=== PATIENT | female | born 1980 | race Caucasian/White ===

== ENCOUNTER 2022-07-02 08:00 | Outpatient (NON) | payer OTHER, SELFPAY | END 2022-07-02 08:01 | disposition home or self-care (01) | LOC: ANHLAB 07-03 08:26 | PROVIDERS: PCP Family Medicine Adolescent Medicine; Visit Provider Internal Medicine Gastroenterology | DX: R10.13 Epigastric pain (principal); K63.5 Polyp of colon | CPT/HCPCS: 88305; 88342 ==

== ENCOUNTER 2022-07-02 11:58 | Day surgery (SDC) | payer OTHER, SELFPAY ==
[2022-06-02 10:07] VITALS: BMI 32.2
[2022-06-18 09:49] VITALS: BMI 32.1
[2022-07-02 12:59] VITALS: BP 130/94; PULSE 70; RESP 18; TEMP 36.8; O2SAT 99
[2022-07-02] MEDS: LACTATED RINGERS 1,000 ML 150 ML IV CONT (13:04)
--- NOTE | 2022-07-02 13:14 | WPDANESEPPF ---
Anes - Initial Pre Proc Eval Procedure: Operation Date: 07/02/22 13:30 Proposed Procedures p Esophagogastroduodenoscopy - Rahat Granados MD s Diagnostic Colonoscopy - Rhaat Granados MD Date/Time: 07/02/22 13:14 Surgeon: Rahat Granados MD Pre Op Diagnosis: GI Bleed, Diarrhea, Epigastric Pain and Nausea Patient Data Age: 41 Gender: F Height: 1.7 m Weight: 93 kg Last Vital Signs Temp 36.8 C 07/02/22 12:59 Pulse 70 07/02/22 12:59 Resp 18 07/02/22 12:59 BP 130/94 H 07/02/22 12:59 Pulse Ox 99 07/02/22 12:59 O2 Del Method Room Air 07/02/22 12:59 Allergies Allergy/AdvReac Type Severity Reaction Status Date / Time No Known Allergies Allergy Verified 07/02/22 12:28 Home Medications Medication Instructions Recorded Confirmed Type multivitamin (Daily Multi-Vitamin 1 tablet PO DAILY 05/07/22 07/02/22 History tablet) pantoprazole 40 mg tablet,delayed 40 mg PO QAM #60 tabs 05/07/22 07/02/22 Rx release peg 3350-electrolytes 236 240 ml PO Q10M #4,000 mL 06/02/22 Rx gram-22.74 gram-6.74 gram-5.86 gram solution (Golytely) sertraline 50 mg tablet 50 mg PO HS 06/18/22 07/02/22 History Patient hx anesthesia problems: none Family hx anesthesia problems: none Results Review: All pre-operative results and documents have been reviewed as part of the pre-operative evaluation. [facility] Past Medical History Medical History Major depressive disorder, recurrent, mild Migraine Nicotine dependence, cigarettes, uncomplicated Obesity (BMI 30-39.9) Surgical History Surgical History History of detached retina repair Hx of cholecystectomy Family History Family History Grandparent Congestive heart failure Mother Ovarian cancer Social History Social History Smoking packs per day: 0.75 Smoking cigarettes per day: 15.0 Years smoked: 25 Smoking pack-years: 18.75 Smoking status: Current every day smoker Tobacco type: cigarettes Second hand tobacco smoke exposure: No Alcohol intake: current Drinks per week: 1 Substance use: current Substance use type: marijuana Other substance usage details: RARE GUMMY USE Living arrangements: with family Gender identity (if verbalized by the patient): Female Sexual Orientation (if Verbalized by the Patient): Straight or Heterosexual Spiritual care concerns: No Agree to blood products: Yes Anes - Eval Final PreProcedure Day of Procedure 07/02/22 13:14 Patient weight: obese Heart: regular rate and rhythm Lungs: decreased breath sounds Airway: Mallampati scale class II Neurological: alert and oriented Last oral intake: >/= 8 hours ASA classification: III Emergent: no Anesthetic plan: proceed Anesthesia type and monitoring: general GIVS and standard monitoring Results Review: All pre-operative results and documents have been reviewed as part of the pre-operative evaluation. Informed Consent: The patient's anesthetic plan and its attendant risks and benefits were discussed with the patient/family/POA. Questions were solicited and answers provided to the satisfaction of the patient/family/POA.
--- NOTE | 2022-07-02 13:28 | PM.HPGS ---
History of Present Illness History of Present Illness Consent: Risks, benefits, and alternatives have been discussed and questions answered. Patient agrees to proceed with procedure. 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 Intermittent blood in stools. Never had scopes. Review of Systems Constitutional: Constitutional: Denies headache(s) and Denies weakness Eyes: Eyes: Denies blurry vision ENT: Reports Normal hearing present, Denies headache(s) and Denies neck pain Cardiovascular: Cardiovascular: Denies chest pain and Denies dyspnea Respiratory: Respiratory: Denies dyspnea Gastrointestinal: Gastrointestinal: Reports no additional gastrointestinal complaints Genitourinary: Genitourinary: Denies dysuria Musculoskeletal: Musculoskeletal: Denies neck pain Integumentary/Breasts: Skin/Breast: Denies dry skin Neurologic: Reports Normal hearing present, Denies headache(s) and Denies weakness Psychiatric: Psychiatric: Denies anxiety Endocrine: Endocrine: Denies change in body appearance Hematologic/Lymphatic: Hematologic/Lymphatic: Denies easy bleeding Allergic/Immunologic: Allergic/Immunologic: Denies urticaria PMFSH Past Medical History Medical History (Updated 07/02/22 @ 13:29 by Rahat Granados MD) Diarrhea Epigastric pain Hematochezia Major depressive disorder, recurrent, mild Migraine Nicotine dependence, cigarettes, uncomplicated Obesity (BMI 30-39.9) Surgical History Surgical History History of detached retina repair Hx of cholecystectomy Family History Family History Grandparent Congestive heart failure Mother Ovarian cancer Social History Social History Smoking packs per day: 0.75 Smoking cigarettes per day: 15.0 Years smoked: 25 Smoking pack-years: 18.75 Smoking status: Current every day smoker Tobacco type: cigarettes Second hand tobacco smoke exposure: No Alcohol intake: current Drinks per week: 1 Substance use: current Substance use type: marijuana Other substance usage details: RARE GUMMY USE Living arrangements: with family Gender identity (if verbalized by the patient): Female Sexual Orientation (if Verbalized by the Patient): Straight or Heterosexual Spiritual care concerns: No Agree to blood products: Yes Meds Home Medications and Allergies Home Medications Medication Instructions Recorded Confirmed Type multivitamin (Daily Multi-Vitamin 1 tablet PO DAILY 05/07/22 07/02/22 History tablet) pantoprazole 40 mg tablet,delayed 40 mg PO QAM #60 tabs 05/07/22 07/02/22 Rx release peg 3350-electrolytes 236 240 ml PO Q10M #4,000 mL 06/02/22 Rx gram-22.74 gram-6.74 gram-5.86 gram solution (Golytely) sertraline 50 mg tablet 50 mg PO HS 06/18/22 07/02/22 History Allergies Allergy/AdvReac Type Severity Reaction Status Date / Time No Known Allergies Allergy Verified 07/02/22 12:28 Vital Signs Vital Signs - 24 hr 07/02/22 12:59 Temperature 98.3 F Pulse Rate 70 Respiratory Rate 18 Blood Pressure 130/94 H Pulse Oximetry 99 Oxygen Delivery Room Air Exam Const: General: comfortable and no acute distress HENMT: General nose exam: Normal nares present Eyes: General: appearance normal, both eyes and all related structures Neck: Neck: no JVD Resp: Auscultation: clear to auscultation bilaterally Cardio: Rate: regular rate Rhythm: regular rhythm GI: Inspection: non-distended GI Palp: Yes Soft to palpation Skin: General skin exam: normal color Neuro: General: gait normal Speech: normal speech Extrem: General: normal to inspection Psych: Mental
--- NOTE | 2022-07-02 13:51 | WPDANESPN ---
Anes - Prog Note Post-Op Date/Time: 07/02/22 13:51 Cardiovascular status: normal Respiratory status: normal Airway patency: baseline Mental status: baseline Post-Op hydration status: normal Vital Signs: Last Vital Signs Temp 36.8 C 07/02/22 12:59 Pulse 70 07/02/22 12:59 Resp 18 07/02/22 12:59 BP 130/94 H 07/02/22 12:59 Pulse Ox 99 07/02/22 12:59 O2 Del Method Room Air 07/02/22 12:59 Pain Score (VAS): 0 Patient Feedback: Patient satisfied with anesthetic care.
[2022-07-02 14:00] VITALS: BP 107/70; PULSE 70; RESP 14; O2SAT 100
[2022-07-02 14:10] VITALS: BP 123/78; PULSE 64; RESP 13; O2SAT 99
--- NOTE | 2022-07-02 14:21 | WPDANESPN ---
Anes - Prog Note Post-Op Date/Time: 07/02/22 14:21 Cardiovascular status: normal Respiratory status: normal Airway patency: baseline Mental status: baseline Post-Op hydration status: normal Vital Signs: Last Vital Signs Temp 36.8 C 07/02/22 12:59 Pulse 64 07/02/22 14:10 Resp 13 07/02/22 14:10 BP 123/78 07/02/22 14:10 Pulse Ox 99 07/02/22 14:10 O2 Del Method Room Air 07/02/22 14:10 Pain Score (VAS): 0 I/O: Intake & Output 07/01/22 07/02/22 07/02/22 23:59 07:59 15:59 Intake Total 600 Balance 600 Patient Feedback: Patient satisfied with anesthetic care.
== END 2022-07-02 14:37 | disposition home or self-care (01) ==
PROVIDERS: PCP Family Medicine Adolescent Medicine; Visit Provider Internal Medicine Gastroenterology
PROC: 0DJ08ZZ Inspection of Upper Intestinal Tract, Via Natural or Artificial Opening Endoscopic (ICD-10-PCS; CPT 43235; principal; 2022-07-02 13:30)
PROC: 0DJD8ZZ Inspection of Lower Intestinal Tract, Via Natural or Artificial Opening Endoscopic (ICD-10-PCS; CPT 45378; 2022-07-02 13:30)
DX: K92.1 Melena (principal); R19.7 Diarrhea, unspecified
CPT/HCPCS: 45385; 45380; 43239